=== PATIENT | female | born 1955 | race Caucasian/White ===

== ENCOUNTER 2016-10-30 12:54 | Emergency (ER) | payer OTHER ==
[2016-10-30 13:16] VITALS: BP 141/85
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
--- NOTE | 2016-10-30 15:49 | Diag Imaging Result Document ---
PROCEDURE NAME: FOOT COMPLETE RIGHT - 10/30/2016 RIGHT FOOT, 3 VIEWS: FINDINGS: No fracture. No dislocation. There are mild long standing arthritic changes with several bone cysts and bone spurs as well as joint space narrowing at the first metatarsophalangeal joint. IMPRESSION: No acute bony injury.
--- NOTE | 2016-10-30 15:51 | Diag Imaging Result Document ---
PROCEDURE NAME: ANKLE COMPLETE RIGHT - 10/30/2016 RIGHT ANKLE, 3 VIEWS: FINDINGS: There is an inferior calcaneal bone spur. No fracture. No dislocation. IMPRESSION: No acute bony injury. [facility]
== END 2016-10-30 15:16 | disposition home or self-care (01) ==
LOC: P.ED 12:54
DX: M79.671 Pain in right foot (principal); I10 Essential (primary) hypertension; E78.5 Hyperlipidemia, unspecified; M25.571 Pain in right ankle and joints of right foot; G89.29 Other chronic pain; F41.9 Anxiety disorder, unspecified; F32.9 Major depressive disorder, single episode, unspecified; Z87.891 Personal history of nicotine dependence; V89.2XXD Person injured in unspecified motor-vehicle accident, traffic, subsequent encounter; Z79.899 Other long term (current) drug therapy
CPT/HCPCS: 99283